=== PATIENT | female | born 1940 | race Caucasian/White ===

== ENCOUNTER 2019-05-12 19:03 | Emergency (ER) | payer MEDICARE, OTHER ==
[2019-05-12] MEDS ORDERED: Sodium Chloride 0.9% 1,000 ML IV SCH (20:30)
--- NOTE | 2019-05-12 23:52 | ER ---
REASON FOR VISIT: Weakness. HISTORY OF PRESENT ILLNESS: This 79-year-old woman has had a colon resection in September of last year for colon cancer and has subsequently been placed on chemotherapy, which she has tolerated remarkably well according to the patient and the family members that have accompanied her. Apparently, yesterday and the day before, she had been outside a lot, mowing the lawn all day, both yesterday and the day before. This morning, she woke up and felt kind of punk and generally somewhat weak and had poor appetite and really did not drink a great deal. She was worn out all day long. Her weakness continued through the day and she came in to have this evaluated. She admits that she has not taken a lot of liquids in today and has not eaten very much solid food simply because of the lack of appetite. Her last chemotherapy was completed 4 weeks ago. 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 The patient denies any fever, chills, shortness of breath, chest pain, cough, or hemoptysis. She has not had any nausea or vomiting, but she does have decreased appetite as noted above. She does occasionally have a loose stool, but this is a chronic problem dating back to her colon resection and that has not changed. She denies any actual abdominal pain apart from some mild vague generalized discomfort. PAST MEDICAL HISTORY: 1. Colon resection, 09/18, as noted above. 2. Chemotherapy, completed as noted above. 3. History of gout. She completed a course of colchicine for a flare-up 1 week ago and did have some loose stools from that, but that quickly resolved. 4. Hypertension. 5. Possibly CHF as she is on a diuretic. MEDICATIONS: Reviewed. See EMR. ALLERGIES: NONE TO MEDICATIONS. REVIEW OF SYSTEMS: Pertinent positives and negatives as listed in the HPI. PHYSICAL EXAMINATION: GENERAL: She is a pleasant, jocular lady in no acute distress. She does not appear flushed nor does she appear pale. VITAL SIGNS: She is afebrile. Vitals as noted in the EMR. HEENT: Head is normocephalic. She does not appear clinically anemic. Oropharynx is normal. Her mucosa appears reasonably moist. NECK: Supple. There is no adenopathy. No JVD. No mass. CHEST: Clear to auscultation with no wheezes, rhonchi, or rales. Good air exchange is noted bilaterally. CARDIAC: Regular rate without murmur. ABDOMEN: Bowel sounds are present. Nondistended, soft, nontender. No palpable masses are noted. No percussion tenderness, guarding, or rebound. EXTREMITIES: She has mild ankle edema bilaterally (this is not new). Her feet are pink and warm with palpable posterior tibial pulses bilaterally. NEUROLOGIC: She is awake and alert. She moves all 4 extremities equally well. Cranial nerves 2 through 12 are intact. Deep tendon reflexes are not tested. Sensory exam is normal to crude touch. LABORATORY RESULTS: CBC was normal. She has no leukocytosis or anemia. Her CMP shows her electrolytes to be with normal including sodium, potassium, and chloride. Her creatinine is elevated at 1.2, and she does have a slight elevation in anion gap at 16. Remainder of the CMP is unremarkable. Urinalysis did show some white cells, but a lot of epithelial cells and few bacteria. It does not look like a UTI. A chest x-ray does not show any active pulmonary disease with no infiltrates observed. IMPRESSION: Mild dehydration. FURTHER EMERGENCY ROOM COURSE: IV was inserted and she was given 1 L of normal saline over 2 hours. I rechecked on her and visited with her. She felt "much better." I reviewed the lab results and my impression that she probably over exerted herself and got dehydrated clinically that would seem to be the case. There was no sign of infectious process going on at this point in time. I instructed her about the importance of hydration. She is planning on returning home tomorrow and I stated the importance of things like Gatorade and tried to eat some solid foods if she can, so she can make the trip. She thinks she could manage this quite easily. She understands and agrees. All questions were answered. PRASHANT/EDIN /[id number]
--- NOTE | 2019-05-15 10:12 | CR ---
DATE OF SERVICE: 05/12/19 CLINICAL DATA: weakness PA AND LATERAL CHEST: No priors. There is a subclavian Carla-Cath in place with its distal tip in the region of the superior vena cava. The heart is mildly enlarged. There are densities in both lung bases consistent with basilar atelectasis or infiltrate. Pneumonia should be considered. The lungs are otherwise clear. No pneumothorax. No pleural effusions. [id number] [facility]
== END 2019-05-12 22:09 | disposition home or self-care (01) ==
LOC: LB.ED 19:03
DX: E86.0 Dehydration (principal); I10 Essential (primary) hypertension; Z79.899 Other long term (current) drug therapy
CPT/HCPCS: 36415; 71046; 80053; 81001; 85025; 96360; 96361; 99283; 99284; J7030